=== PATIENT | male | born 1985 | race Caucasian/White ===

== ENCOUNTER 2018-05-12 10:58 | Emergency (ER) | payer SELFPAY ==
[~2018-05-12] VITALS: Ht 162.6 cm; Wt 59.0 kg
[2018-05-12] MEDS ORDERED: NKM (11:18)
--- NOTE | 2018-05-12 12:14 | Emergency Room Report ---
History of Present Illness General Chief Complaint: Upper Extremity Injury Source: Patient Present Illness HPI 33-year-old male patient presents ER complaining of "ring is stuck on my finger ". Reports ring stuck on his ring finger. Reports has been stuck for over a week. Reports he called a ring store and his primary care provider and they told him come to the ER to help it be removed. Reports he has not been able to remove it with soap and water. Reports pain. Reports he is right-hand dominant. Denies other aggravating or relieving factors. denies loss or ROM or sensation in finger. Denies acute injury or accident. Allergies: Coded Allergies: No Known Allergies (Unverified , 05/12/18) Patient History Past Medical History: see triage record Reviewed Nursing Documentation: PMH: Agreed; PSxH: Agreed Nursing Documentation-PMH Hx Seizures: Yes Review of Systems All Other Systems: negative except mentioned in HPI Physical Exam Vital Signs Date Time Temp Pulse Resp B/P (MAP) Pulse Ox O2 Delivery O2 Flow Rate FiO2 05/12/18 11:15 97.2 108 18 121/77 99 Room Air Sp02 EP Interpretation: reviewed, normal General Appearance: well appearing, no apparent distress, alert, GCS 15, non- toxic Head: normocephalic, atraumatic Eyes: bilateral eye normal inspection, bilateral eye PERRL ENT: hearing grossly normal, normal pharynx, no angioedema, normal voice, uvula midline, moist mucus membranes Neck: full range of motion Respiratory: lungs clear, normal breath sounds, no rhonchi, no respiratory distress, no accessory muscle use, no wheezing, speaking full sentences Cardiovascular #1: regular rate, rhythm, no edema Cardiovascular #2: 2+ radial (R), 2+ radial (L) Musculoskeletal: back normal, digits/nails normal, gait/station normal, normal range of motion, non-tender, other - Right ring finger, ring unable to be removed, mild swelling of knuckle of PIP, no surrounding erythema or edema, no warmth to touch, cap refill <2seconds Neurologic: alert, oriented x3, responsive, motor strength/tone normal, sensory intact Skin: no rash Procedures Additional Procedure Procedure Narrative Patient finger was cleaned and sterilized. 3 cc of 1% lidocaine without epi were used to achieve local anesthesia. Ring was removed using string technique and soap and water.. Patient neurovascularly intact following procedure. Patient tolerated procedure well without complications. Procedure was supervised with Dr. Lehman present. Medical Decision Making PA Attestation Dr. Lehman is my supervising Physician whom patient management has been discussed with. Diagnostic Impression: Primary Impression: Constrictive jewelry of finger ER Course Pt. presents to the ED c/o "Ring stuck on finger". Ddx considered but are not limited to constrictive ring, sprain, edema, cellulitis. Vital signs: are WNL, pt. is afebrile ER COURSE: Patient denies acute injury or accident, full range of motion, low suspicion for fracture, does not require x-ray at this time. Ring removed using string technique and soap and water. See procedure note. Supervised by Dr. Lehman. Follow-up with primary care provider and discuss further treatment and referral. Take Tylenol or Motrin for pain. Do not put ring back on finger. ER precautions given. DISCHARGE: At this time pt is stable for d/c to home. Patient is resting comfortably, in no acute distress, nontoxic appearing, talking without difficulty. Patient to take medications as instructed Will provide with patient care instructions and any necessary prescriptions. Care plan and follow-up instructions provided. Patient instructed to follow-up with primary care provider in 3 - 5 days. Patient questions asked and answered. Patient reports understanding and agreement to treatment plan. ER precautions given. Patient instructed to return to ER immediately for any new or worsening of symptoms including but not limited to increasing SOB, persistent fever, chest pain, intractable vomiting. - Please note that this Emergency Department Report was dictated using [employer] coordinator technology software, occasionally this can lead to erroneous entry secondary to interpretation by the dictation equipment. Last Vital Signs Date Time Temp Pulse Resp B/P (MAP) Pulse Ox O2 Delivery O2 Flow Rate FiO2 05/12/18 11:15 97.2 108 18 121/77 99 Room Air Status: improved Disposition: HOME, SELF-CARE Condition: Stable Scripts Ibuprofen* (MOTRIN*) 600 Mg Tablet 600 MG ORAL Q8H PRN for For Pain, #30 TAB 0 Refills Prov: Jon Watkins 05/12/18 Patient Instructions: Finger Sprain Additional Instructions: Patient instructed to follow up with primary care provider. If unable to followup with PCP, followup with orthopedic urgent care in 5-7 days , call to schedule appointment. Patient instructed on RICE method: rest, ice, compression, elevation. Patient instructed to WBAT. Take medications as directed. Patient questions asked and answered. ER precautions given, patient instructed to return to ER immediately for any new or worsening of symptoms. [facility] [address] [facility] [address] [facility], [address] [email or web address] Jon Watkins May 12, 2018 12:14
[2018-05-12] MEDS ORDERED: Lidocaine 1% MPF 10mg/ml 5ml IM ONE (12:15)
--- NOTE | 2018-05-12 12:26 | NUR ---
ED Nurse Note: Pt c/o unable to remove ring from right ring finger; swelling noted. cap refill < 3 sec. HR 108 upon arrival. AOx4, other VSS. Will cont to monitor.
[2018-05-12 12:32] VITALS: BP 120/69
[2018-05-12] MEDS ORDERED: IBUPROFEN600 MG ORAL (13:06)
[2018-05-12 13:20] VITALS: BP 118/71
--- NOTE | 2018-05-12 13:20 | NUR ---
ER DISCHARGE NOTE: Patient is cleared to be discharged per ERMD with friend, pt is aox4, on room air, with stable vital signs. pt was given dc and prescription instructions, pt was able to verbalize understanding, pt id band removed. pt is able to ambulate with steady gait. pt took all belongings.
== END 2018-05-12 13:10 | disposition home or self-care (01) ==
LOC: EMR 11:50
DX: S60.455A Superficial foreign body of left ring finger, initial encounter (principal); M79.645 Pain in left finger(s); W49.04XA Ring or other jewelry causing external constriction, initial encounter
CPT/HCPCS: 99283